=== PATIENT | female | born 1995 | race Caucasian/White ===

== ENCOUNTER 2017-02-27 09:26 | Emergency (ER) | payer OTHER ==
[~2017-02-27] VITALS: Ht 152.4 cm; Wt 110.0 kg
[2017-02-27 10:50] VITALS: BP 124/69; PULSE 60; RESP 15; TEMP 98; O2SAT 100
[2017-02-27] MEDS ORDERED: ONDANSETRON HCL 4 MG/2 ML VIAL IV PUSH ONE (11:30)
--- NOTE | 2017-02-27 11:30 | PD ---
HPI Chief Complaint: General Weakness Time Seen by Provider: 11:25 Travel History International Travel<30 days: No Contact w/Intl Traveler<30days: No Traveled to known affect area: No History of Present Illness HPI 21-year-old female with PMH of anxiety presents to the ED for evaluation of 3 day history of episodic shortness of breath, palpitations, nausea. No alleviating or exacerbating factors reported. Today she states that she feels tired and she thinks is due to the symptoms which she describes as similar to previous episodes of anxiety. The patient denies headache, dizziness, vision changes, cough, vomiting, changes in bowel habits, dysuria, risk of . The patient states that she drove from [place] a few days ago. She endorses similar episodes a few years ago, after her daughter was born. She is a nonsmoker. PFSH Past Medical History Anxiety: Yes Tetanus Vaccination: < 5 Years ?: Not LMP: 01/31/17 Past Surgical History Section: Yes Cholecystectomy: Yes Social History Alcohol Use: No Tobacco Use: No Substance Use: No Allergies-Medications (Allergen,Severity, Reaction): Coded Allergies: acetaminophen (Verified Allergy, Severe, Anaphylaxis, 02/27/17) aspirin (Verified Allergy, Severe, Anaphylaxis, 02/27/17) calcium carbonate (Verified Allergy, Severe, Anaphylaxis, 02/27/17) Reported Meds & Prescriptions Reported Meds & Active Scripts Active Vistaril (Hydroxyzine Pamoate) 25 Mg Cap 25 Mg PO TID PRN Review of Systems Except as stated in HPI: all other systems reviewed are Neg Physical Exam Narrative GENERAL: Well-nourished, well-developed obese female in no acute distress. SKIN: Focused skin assessment warm/dry. HEAD: Normocephalic. Atraumatic. EYES: No scleral icterus. No injection or drainage. PERRLA. EOMI. NECK: Supple, trachea midline. No JVD or lymphadenopathy. CARDIOVASCULAR: Regular rate and rhythm without murmurs, gallops, or rubs. RESPIRATORY: Breath sounds clear and equal bilaterally. No accessory muscle use. GASTROINTESTINAL: Abdomen soft, true burning, non-tender, nondistended. Active bowel sounds. MUSCULOSKELETAL: No cyanosis, or edema. Patient moves easily from lying down to standing position. NEUROLOGICAL: Awake and alert. Cranial nerves II through XII intact. Motor and sensory grossly within normal limits. Five out of 5 muscle strength in all muscle groups. Normal speech. BACK: Nontender without obvious deformity. No CVA tenderness. Data Data Last Documented VS Vital Signs Date Time Temp Pulse Resp B/P (MAP) Pulse Ox O2 Delivery O2 Flow Rate FiO2 02/27/17 10:50 98.0 60 15 124/69 (87) 100 Room Air Orders Orders D-Dimer (02/27/17 11:22) Complete Blood Count With Diff (02/27/17 11:22) Basic Metabolic Panel (Bmp) (02/27/17 11:22) Prothrombin Time / Inr (Pt) (02/27/17 11:22) Act Partial Throm Time (Ptt) (02/27/17 11:22) Iv Access Insert/Monitor (02/27/17 11:22) Electrocardiogram (02/27/17 11:22) Chest, Single Ap (02/27/17 ) Ed Urine Pregnancytest Poc (02/27/17 11:22) Urinalysis - C+S If Indicated (02/27/17 11:22) Ondansetron Inj (Zofran Inj) (02/27/17 11:30) Labs Laboratory Tests Test 02/27/17 11:30 02/27/17 11:40 Urine Color YELLOW Urine Turbidity HAZY Urine pH 7.5 Urine Specific [place] 1.023 Urine Protein TRACE mg/dL Urine Glucose (UA) NEG mg/dL Urine Ketones NEG mg/dL Urine Occult Blood NEG Urine Nitrite NEG Urine Bilirubin NEG Urine Urobilinogen LESS THAN 2.0 MG/DL Urine Leukocyte Esterase NEG Urine RBC 1 /hpf Urine WBC 5 /hpf Urine Squamous Epithelial Cells 7 /hpf Urine Transitional Epithelial Cells <1 /hpf Urine Bacteria FEW /hpf Urine Mucus FEW /lpf Microscopic Urinalysis Comment CULT NOT INDICATED White Blood Count 8.1 TH/MM3 Red Blood Count 5.45 MIL/MM3 Hemoglobin 14.5 GM/DL Hematocrit 44.1 % Mean Corpuscular Volume 80.9 FL Mean Corpuscular Hemoglobin 26.7 PG Mean Corpuscular Hemoglobin Concent 33.0 % Red Cell Distribution Width 13.9 % Platelet Count 289 TH/MM3 Mean Platelet Volume 8.2 FL Neutrophils (%) (Auto) 54.1 % Lymphocytes (%) (Auto) 36.9 % Monocytes (%) (Auto) 6.6 % Eosinophils (%) (Auto) 2.0 % Basophils (%) (Auto) 0.4 % Neutrophils # (Auto) 4.4 TH/MM3 Lymphocytes # (Auto) 3.0 TH/MM3 Monocytes # (Auto) 0.5 TH/MM3 Eosinophils # (Auto) 0.2 TH/MM3 Basophils # (Auto) 0.0 TH/MM3 CBC Comment DIFF FINAL Differential Comment Prothrombin Time 10.8 SEC Prothromb Time International Ratio 1.0 RATIO Activated Partial Thromboplast Time 30.4 SEC D-Dimer Quantitative (PE/DVT) 0.40 MG/L FEU Blood Urea Nitrogen 7 MG/DL Creatinine 0.64 MG/DL Random Glucose 85 MG/DL Calcium Level 8.8 MG/DL Sodium Level 138 MEQ/L Potassium Level 4.4 MEQ/L Chloride Level 106 MEQ/L Carbon Dioxide Level 25.4 MEQ/L Anion Gap 7 MEQ/L Estimat Glomerular Filtration Rate 117 ML/MIN MDM Medical Decision Making Medical Screen Exam Complete: Yes Emergency Medical Condition: Yes Differential Diagnosis Anxiety versus versus UTI versus PE versus PNA versus other Narrative Course 21-year-old female with PMH of anxiety presents to the ED for evaluation 3 day history of episodic shortness of breath, palpitations, nausea. Today she states that she feels tired and she thinks is due to the symptoms which she describes as similar to previous episodes of anxiety. The patient denies headache, dizziness, vision changes, cough, vomiting, changes in bowel habits, dysuria, risk of . The patient states that she drove from [place] a few days ago. Vitals reviewed. Physical exam is reassuring. I suspect these are symptoms secondary to anxiety but given her risk for PE will check a d-dimer and EKG. EKG rate 55, sinus rhythm. CO interval 145, QRS 97, QTC 418 ms. Normal axis. No ST elevations. Reviewed by Dr. Tran. ED urine test negative. D-dimer negative. Chest x-ray reveals no acute cardiopulmonary process per radiology read. No concerning abnormalities a CBC, CMP, coags. No culture of the UA indicated. I discussed the results of the workup with the patient was reassured. She was provided a brief course of Vistaril, cautioned not to take it while driving. She requested a note to excuse for work today which was provided. She is referred to the [facility] for outpatient treatment, encouraged to return to the ED should symptoms worsen. She is agreeable to this plan. She is stable and discharged home. Diagnosis Primary Impression: Anxiety Referrals: [facility] Patient Instructions: Anxiety (ED), General Instructions Departure Forms: Tests/Procedures, Work Release Enter return to work date: Feb 28, 2017 Additional Instructions: Rest, hydrate. Avoid known stressors as possible. Take Vistaril as prescribed. Use caution in taking Vistaril as it can make you sleepy. Follow-up with the [facility]. Return to the ED for any urgent or emergent medical condition. Med/Other Pt SpecificInfo: Prescription(s) given Scripts Hydroxyzine Pamoate (Vistaril) 25 Mg Cap 25 MG PO TID Y for ANXIETY, #14 CAP 0 Refills Prov: Stanley Tran MD 02/27/17 Disposition: 01 DISCHARGE HOME Condition: Stable Chaparrita Botello Feb 27, 2017 11:30
[2017-02-27 12:00] LABS: AUTOMATED NEUTROPHIL # 4.4 TH/MM3 (1.8-7.7); BASOPHIL % 0.4 % (0.0-2.0); EOSINOPHIL # 0.2 TH/MM3 (0-0.4); HEMATOCRIT 44.1 % (35.0-46.0); HEMO FLAGS DIFF FINAL; LYMPH % 36.9 % (9.0-44.0); MEAN CELL VOLUME 80.9 FL (80.0-100.0); MEAN CORPUSCULAR HEMOGLOBIN 26.7 PG (27.0-34.0); MONO % 6.6 % (0.0-8.0); NEUT % 54.1 % (16.0-70.0); PLATELET COUNT 289 TH/MM3 (150-450); RED BLOOD COUNT 5.45 MIL/MM3 (4.00-5.30); RED CELL DISTRIBUTION WIDTH 13.9 % (11.6-17.2); WHITE BLOOD COUNT 8.1 TH/MM3 (4.0-11.0)
[2017-02-27 12:17] LABS: APTT (PATIENT) 30.4 SEC (24.3-30.1); PROTHROMBIN TIME - PATIENT 10.8 SEC (9.8-11.6)
[2017-02-27 12:24] LABS: BICARBONATE 25.4 MEQ/L (21.0-32.0); POTASSIUM 4.4 MEQ/L (3.5-5.1)
--- NOTE | 2017-02-27 12:27 | RADRPT ---
EXAM DATE/TIME: 02/27/2017 12:02 [facility] COMPARISON: No previous studies available for comparison. INDICATIONS : Shortness of breath. MEDICAL HISTORY : None. SURGICAL HISTORY : None. ENCOUNTER: Initial ACUITY: 1 day PAIN SCORE: 0/10 LOCATION: Bilateral chest FINDINGS: A single apical lordotic view of the chest demonstrates the lungs to be symmetrically aerated without evidence of mass, infiltrate or effusion. The cardiomediastinal contours are unremarkable. Osseous structures are intact. CONCLUSION: No acute cardiopulmonary process. Zeferino Fournier MD on February 27, 2017 at 12:25 Board Certified Radiologist. This report was verified electronically.
[2017-02-27] MEDS ORDERED: VIST25CA PO (12:28)
[2017-02-27 12:49] LABS: BACTERIA, URINE FEW /hpf; BLOOD, URINE NEG (NEG); COMMENT (UR) CULT NOT INDICATED; CULTURE IF INDICATED CULT NOT INDICATED; GLUCOSE,URINE NEG (NEG); KETONE, URINE NEG (NEG); MUCUS URINE FEW /lpf (OCC); NITRITE,URINE NEG (NEG); PH, URINE 7.5 (5.0-8.5); SQUAMOUS EPITHELIAL CELL URINE 7 /hpf (0-5); TRANSITIONAL EPI CELLS, URINE <1 /hpf; URINE COLOR YELLOW (YELLW/STRAW)
--- NOTE | 2017-02-28 08:45 | EKG ---
Date Performed: 02/27/2017 Time Performed: 11:41:10 PTAGE: 21 years EKG: SINUS BRADYCARDIA BORDERLINE ECG NO PREVIOUS TRACING DOCTOR: Odalis Berumen Interpretating Date/Time 02/28/2017 08:44:43
== END 2017-02-27 13:12 | disposition home or self-care (01) ==
LOC: NEPD 09:26
DX: F41.9 Anxiety disorder, unspecified (principal); R11.0 Nausea; R53.83 Other fatigue; R94.31 Abnormal electrocardiogram [ECG] [EKG]; Z86.59 Personal history of other mental and behavioral disorders
CPT/HCPCS: 71010; 80048; 81001; 84703; 85025; 85379; 85610; 85730; 93005; 96374; 99285; J2405